=== PATIENT | female | born 1965 | race Caucasian/White ===

== ENCOUNTER → 2020-10-30 09:04 | Outpatient (BNVA) | payer OTHER, SELFPAY | PROVIDERS: PCP Internal Medicine; Visit Provider Nurse Practitioner Family | DX: M54.2 Cervicalgia (principal); M47.816 Spondylosis without myelopathy or radiculopathy, lumbar region | CPT/HCPCS: 99202 ==

== ENCOUNTER → 2020-11-18 16:26 | Outpatient (BNVA) | payer OTHER, SELFPAY | PROVIDERS: PCP Internal Medicine; Visit Provider Nurse Practitioner Family | DX: M54.2 Cervicalgia (principal); M47.816 Spondylosis without myelopathy or radiculopathy, lumbar region | CPT/HCPCS: 99212; Q3014 ==

== ENCOUNTER 2021-04-30 09:00 | Outpatient (RCR) | payer OTHER, SELFPAY | END 2021-06-28 11:22 | disposition home or self-care (01) | LOC: HO.PTWFD 09:00 | PROVIDERS: PCP Internal Medicine; Visit Provider Nurse Practitioner Family | DX: M54.2 Cervicalgia (principal) | CPT/HCPCS: 97012; 97014; 97110; 97140; 97162; 97535 ==

== ENCOUNTER → 2021-05-28 15:49 | Outpatient (BNVA) | payer OTHER, SELFPAY | PROVIDERS: PCP Internal Medicine; Visit Provider Nurse Practitioner Family | DX: M54.2 Cervicalgia (principal); M47.816 Spondylosis without myelopathy or radiculopathy, lumbar region | CPT/HCPCS: 99212 ==

== ENCOUNTER 2021-08-18 06:09 | Outpatient (REF) | payer OTHER, SELFPAY ==
--- NOTE | ~2021-08-18 | FL_ITS ---
EXAMINATION: XR FLUOROSCOPY WITH IMAGES CLINICAL INFORMATION: M54.2 - Cervicalgia COMPARISON: None. TECHNIQUE: Fluoroscopy performed by Dr. Cullen Mckeon. Fluoroscopy time: 0.3 minutes DAP: 0.522 Gycm2 Images: 1 FINDINGS: Single oblique view demonstrate spinal needle overlying the cervical thoracic junction likely interlaminar. There is epidural contrast as well as some contrast extending along lower right nerve sheath. No vascular communication. There are degenerative changes cervical spine suggested. FL/FL guidance in treatment room IMPRESSION: Fluoroscopy for pain management procedure.
== END 2021-08-18 06:10 | disposition home or self-care (01) ==
LOC: HO.RADIR 06:09
PROVIDERS: Visit Provider Internal Medicine
DX: M46.92 Unspecified inflammatory spondylopathy, cervical region (principal); M54.12 Radiculopathy, cervical region; M54.2 Cervicalgia
CPT/HCPCS: 62321; J1040; Q9967

== ENCOUNTER 2021-09-10 09:35 | Outpatient (REF) | payer OTHER, SELFPAY ==
[2021-09-10 12:12] LABS: Alanine Aminotransferase 17 U/L (0-31); Anion Gap 10 (12-20); Aspartate Amino Transferase 17 U/L (5-31); Blood Urea Nitrogen 14 mg/dL (9-16); Calcium 9.4 mg/dL (8.4-10.2); Carbon Dioxide 28 mmol/L (22-29); Chloride 107 mmol/L (96-108); Cholesterol 192 mg/dL; Estimated Glomerular Filt Rate > 60; Glucose Fasting 91 mg/dL (60-99); HDL Cholesterol 87 mg/dL; LDL Cholesterol Calculated 93 mg/dl; Potassium 4.1 mmol/L (3.3-5.1); Sodium 141 mmol/L (135-145); Triglycerides 60 mg/dL
[2021-09-10 12:25] LABS: Vitamin D 25-OH Total 28.2 ng/mL (>30)
== END 2021-09-10 09:36 | disposition home or self-care (01) ==
LOC: HO.HMGCLDS 09:35
PROVIDERS: Visit Provider Internal Medicine
DX: Z00.01 Encounter for general adult medical examination with abnormal findings (principal); E55.9 Vitamin D deficiency, unspecified
CPT/HCPCS: 36415; 80048; 80061; 82306; 84450; 84460

== ENCOUNTER → 2021-09-17 08:41 | Outpatient (BNVA) | payer OTHER, SELFPAY | PROVIDERS: PCP Internal Medicine; Visit Provider Nurse Practitioner Family | DX: Z13.89 Encounter for screening for other disorder (principal) ==

== ENCOUNTER → 2021-10-29 11:41 | Outpatient (BNVA) | payer OTHER, SELFPAY | PROVIDERS: PCP Internal Medicine; Visit Provider Nurse Practitioner Family | DX: M54.2 Cervicalgia (principal) ==

== ENCOUNTER 2021-11-30 11:18 | Outpatient (REF) | payer OTHER, SELFPAY ==
--- NOTE | ~2021-11-30 | US_ITS ---
EXAMINATION: US THYROID CLINICAL INFORMATION: Nontoxic single thyroid nodule. COMPARISON: None. TECHNIQUE: Linear transducer grayscale and color Doppler examination with attention to the region of the thyroid. FINDINGS: SIZE: Measurements of the thyroid lobes and nodules are given in sagittal, anteroposterior and transverse dimensions respectively. Right Thyroid Lobe: 5.4 x 1.4 x 1.4 cm, volume 5.5 mL. Parenchyma: The gland echotexture is homogeneous. Thyroid vascularity is increased. Left Thyroid Lobe: 5.1 x 1.6 x 1.8 cm, volume 7.7 mL. Parenchyma: The gland echotexture is homogeneous. Thyroid vascularity is increased. Isthmus: 0.2 cm in maximum AP dimension. Estimated total number of nodules greater than or equal to 1 cm: 2. Machine Captain nodules are described as follows: 1. Location: Left midpole. Size: 1.7 x 0.8 x 1.1 cm, volume 0.75 mL. Nodule characteristics: Composition: Solid/almost completely solid (2). Echogenicity: Hypoechoic (2). Shape: Not taller than wide (0). Margins: Lobulated (2). Echogenic Foci: None (0). ACR TI-RADS total points: 6. ACR TI-RADS category: 4. 2. Location: Left midpole. Size: 0.7 x 0.5 x 0.8 cm, volume 0.16 mL. Nodule characteristics: Composition: Solid (2). Echogenicity: Isoechoic (1). Shape: Not taller than wide (0). Margins: Smooth (0). Echogenic Foci: None (0). ACR TI-RADS total points: 3. ACR TI-RADS category: 3. 3. Location: Left lower pole medial. Size: 0.5 x 0.3 x 0.5 cm, volume 0.04 mL. Nodule characteristics: Composition: Spongiform (0). Echogenicity: 0 Shape: 0 Margins: 0 Echogenic Foci: 0 ACR TI-RADS total points: 0. ACR TI-RADS category: 1. 4. Location: Right lower pole. Size: 1.0 x 0.6 x 0.8 cm, volume 0.25 mL. Nodule characteristics: Composition: Solid/almost completely solid (2). Echogenicity: Hypoechoic (2). Shape: Not taller than wide (0). Margins: Ill-defined (0). Echogenic Foci: None (0). ACR TI-RADS total points: 4. ACR TI-RADS category: 4. NODES: No lymphadenopathy is seen in the tissue surrounding the thyroid gland. US/US thyroid IMPRESSION: Heterogeneous suspicious vascular nodule right midpole by TI-RADS reference. Recommend fine-needle aspiration. Nonsuspicious other nodules seen. There is mild thyroid enlargement with increased vascularity. ACR TI-RADS RECOMMENDATION REFERENCE: Ultrasound-guided fine-needle aspiration, followup ultrasound, no further follow up. * TR1 (0 point) and TR 2 (2 points): No FNA or follow up * TR3 (3 points): FNA if more than or equal to 2.5 cm in maximum dimension, followup ultrasound in 1, 3 and 5 years if 1.5 to 2.4 cm in maximum dimension. * TR4 (4-6 points): FNA if more than or equal to 1.5 cm in maximum dimension, followup ultrasound in 1, 2, 3 and 5 years if 1 to 1.4 cm in maximum dimension. * TR5 (more than or equal to 7 points): FNA if more than or equal to 1 cm in maximum dimension, followup ultrasound every year for 5 years if 0.5 to 0.9 cm in maximum dimension. * TR3, TR4 or TR5 nodules that are below the size threshold for follow up receive no follow up.
== END 2021-11-30 11:19 | disposition home or self-care (01) ==
LOC: HO.HMGCX 11:18
PROVIDERS: Visit Provider Internal Medicine
DX: E04.1 Nontoxic single thyroid nodule (principal)
CPT/HCPCS: 76536

== ENCOUNTER 2022-02-24 08:23 | Outpatient (REF) | payer OTHER, SELFPAY ==
--- NOTE | 2022-02-24 08:27 | EMG_ITS ---
Right median and ulnar motor and sensory studies were performed. Right radial sensory study was performed and paraspinal muscles were tested with a needle. IMPRESSION: 1. Mild right median neuropathy across carpal tunnel. 2. Mild right ulnar neuropathy across cubital tunnel. 3. No evidence of cervical radiculopathy. MD LUIS EDUARDO Morse/GERALDO / [id number]
== END 2022-02-24 08:24 | disposition home or self-care (01) ==
LOC: HO.NEURO 08:23
PROVIDERS: Visit Provider Nurse Practitioner Family
DX: M46.92 Unspecified inflammatory spondylopathy, cervical region (principal); M54.12 Radiculopathy, cervical region
CPT/HCPCS: 95886; 95910

== ENCOUNTER → 2022-03-04 11:29 | Outpatient (BNVA) | payer OTHER, SELFPAY | PROVIDERS: PCP Internal Medicine; Visit Provider Internal Medicine | DX: E04.2 Nontoxic multinodular goiter (principal) | CPT/HCPCS: 99202 ==

== ENCOUNTER 2022-03-25 15:19 | Outpatient (REF) | payer OTHER, SELFPAY ==
[2022-03-25 17:28] LABS: Free T4 (Free Thyroxine) 0.94 ng/dL (0.71-1.85); Thyroid Stimulating Hormone 1.03 uIU/mL (0.32-4.0)
== END 2022-03-25 15:20 | disposition home or self-care (01) ==
LOC: HO.HMGCLDS 15:19
PROVIDERS: PCP Internal Medicine; Visit Provider Internal Medicine
DX: E04.2 Nontoxic multinodular goiter (principal)
CPT/HCPCS: 36415; 84439; 84443

== ENCOUNTER 2022-06-02 08:40 | Outpatient (REF) | payer OTHER, SELFPAY ==
--- NOTE | 2022-06-02 09:37 | PM.OP ---
Brief Operative Note Date of Service: 06/02/22 Pre-op diagnosis: Multinodular Thyroid Procedure: EXAMINATION: US THYROID CLINICAL INFORMATION: Multinodular Thyroid COMPARISON: Prior TECHNIQUE: Linear transducer rutledge-scale and color Doppler examination with attention to the region of the thyroid. FINDINGS: SIZE: Measurements of the thyroid lobes and nodules are given in sagittal, anteroposterior and transverse dimensions respectively. Right Thyroid Lobe: 1.6 x 4.1 x 1.1 cm, volume 3.7 mL. Parenchyma: The gland echotexture is heterogenous. Thyroid vascularity is mildly increased. Left Thyroid Lobe: 2.0 x 3.5 x 1.1 cm, volume 4.0 mL. Parenchyma: The gland echotexture is mildly heterogenous. Thyroid vascularity is mildly increased. Isthmus: 0.2 cm in maximum AP dimension. RIGHT THYROID LOBE: There is 1 nodule. 1. Right mid pole: There is a 0.7 x 0.8 x 0.4 cm predominantly solid isoechoic nodule with smooth margins, no microcalcifications and peripheral flow. LEFT THYROID LOBE: There are 2 nodules. 1. Left upper mid pole medial: There is a 0.8 x 0.8 x 0.5 cm predominantly solid isoechoic nodule with smooth margins and no microcalcifications. There is peripheral flow. 2. Left upper mid pole lateral: There is a 1.0 cm predominantly solid isoechoic nodule with smooth margins and no microcalcifications. There is peripheral flow. It is unclear if this represents a pseudnodule and solely a blood vessel traversing the gland vs a true nodule. NODES: No lymphadenopathy is seen in the tissue surrounding the thyroid gland. Surgeon: Kelly Lowry, DO Was an Director Of Acquisition Marketing used for this Procedure?: No Estimated blood loss (mL): 0
== END 2022-06-02 08:41 | disposition home or self-care (01) ==
LOC: HO.US 08:40
PROVIDERS: Visit Provider Internal Medicine
DX: E04.2 Nontoxic multinodular goiter (principal)
CPT/HCPCS: 76536

== ENCOUNTER → 2022-07-08 14:35 | Outpatient (BNVA) | payer OTHER, SELFPAY | PROVIDERS: PCP Internal Medicine; Visit Provider Nurse Practitioner Family | DX: Z13.89 Encounter for screening for other disorder (principal) ==

== ENCOUNTER → 2022-08-17 10:31 | Outpatient (BNVA) | payer OTHER, SELFPAY | PROVIDERS: PCP Internal Medicine; Visit Provider Orthopaedic Surgery | DX: G56.01 Carpal tunnel syndrome, right upper limb (principal); G56.21 Lesion of ulnar nerve, right upper limb; M77.11 Lateral epicondylitis, right elbow; M77.12 Lateral epicondylitis, left elbow; R20.0 Anesthesia of skin | CPT/HCPCS: 99202 ==

== ENCOUNTER 2022-10-13 12:02 | Outpatient (REF) | payer OTHER, SELFPAY ==
--- NOTE | 2022-10-13 08:30 | EMG_ITS ---
Left median and ulnar motor and sensory studies were performed. Left radial sensory study was performed and paraspinal muscles were tested with a needle. IMPRESSION: Mild to moderate left median neuropathy across carpal tunnel. MD LUIS EDUARDO Morse/GERALDO / [id number]
== END 2022-10-13 12:03 | disposition home or self-care (01) ==
LOC: HO.NEURO 12:02
PROVIDERS: PCP Internal Medicine; Visit Provider Orthopaedic Surgery
DX: R20.0 Anesthesia of skin (principal); R20.2 Paresthesia of skin
CPT/HCPCS: 95886; 95910

== ENCOUNTER 2023-01-06 14:21 | Outpatient (AMB) | payer OTHER, SELFPAY ==
--- NOTE | 2023-01-06 14:27 | A.OFFVIS_ITS ---
Intake Vital Signs 01/06/23 14:33 Height 5 ft 10.5 in Weight 157 lb 4 oz BMI 22.2 BP 129/62 Blood Pressure Location Rt brachial Position Sitting Pulse 74 Pulse Source Pulse Oximeter Pulse Oximetry (%) 100 Oxygen Delivery Method Room Air Intake Visit Reasons: emg results Intake Note: Pain today 07/22. 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 Patient continues to report bilateral elbow, hand and wrist discomfort with use, movements, lifting or pulling objects. Reports intermittent weakness and numbness, especially left hand with certain activities. She is right hand dominant and works at [employer]. Patient was referred to Dr. Armas back in June and was deemed non surgical at that time. She was referred to OT and left EMG but had no follow up with Dr. Armas. We reviewed her EMG results today noted for mild to moderate left median neuropathy across carpal tunnel. She continues brace mainly at night, NSAIDs, and gabapentin with continued symptoms. Reports neck pain with looking down during dental work and relieved with rest, home exercise program, stretching and good posture. Denies any fever, chest pain, shortness of breaths, dizziness, gait imbalances, bladder or bowel incontinence or saddle anesthesia. PRIOR: Patient is a pleasant 56 years old female presents today via telehealth encounter for follow up and EMG study review. Patient was last seen in our office on 10/29/21 by Enriqueta REINA. She continues to report axial and radicular cervical pain. Pain increases with side to side movements, hyperextension and with heavy lifting or carrying heavy objects which causes pull sensation on her neck. She reports radiation of pain to her occipital regions and into left shoulder to left wrist. Patient notes that she has left RTC tendinitis, left tennis elbow and left wrist ganglion cyst. 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 Denies headaches or significant muscle spasms or stiffness. Her EMG study showed right median neuropathy across carpal tunnel and mild right ulnar neuropathy across cubital tunnel. No evidence of cervical radiculopathy. Patient reports physical therapy and one session of acupuncture provided temporary but good results. She also uses cervical pillow for sleep. Patient continues home exercise program to cervical ROM, trying best to maintain good posture which she finds difficult during her work hours as she is tall and has long neck with constant looking down posture. Patient would like to pursue Hand Surgeon evaluation at this time. She is not interested in undergoing cervical therapeutic or diagnostic injections at this time. PRIOR: Abigail is a pleasant 55 year old female who presents to the office with complaints of neck pain and more recently low back pain. She states the pain started over ten years ago without any inciting events, but in the past few months has been more exacerbated. She reports her neck pain starts in the middle and radiates to the right shoulder and down to her wrist with occasional numbness and tingling. Denies any weakness. Previously this was present on the LUE. She also reports her low back has been causing more discomfort since April 2020. Her back pain radiates across the low back without radiation, numbness, tingling or weakness. She also has a history of arthritis of the left shoulder as well as lateral epicondylitis and ganglion cyst for which she uses braces for. The pain is worse in the morning and less severe mid morning. She reports pain onset was gradual for her neck and sudden for her back. Her pain is constant and rates it a 9/10. She states the pain is interfering with sleep, activities of daily living and she cannot function normally. The patient reports the neck pain in terms of tissue damage as burning, scalding, tinging as well as stinging and her low back pain as sharp. She has been taking Ibuprofen 800 mg QD along with gabapentin 300 mg QHS with moderate effect. She has also tried topicals and has the best effect with bengay. She has tried different mattress toppers and pillows with no improvement in her symptoms. Previously she has tried physical therapy for the neck, as well as chiropractic manipulation with good effect. She continues to perform HEP. She has also used TENS unit with some effect. Denies any previous spinal surgery. She last had imaging of through [facility] pain management. This imaging/report is not available today. She presents today to discuss repeat injections, as she had received two in the past with significant improvement in her pain through [facility]PM. 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 Alert and oriented. Mood and affect appropriate. Follows and participates in conversation appropriately. Respiratory effort is unlabored. Able to transition from sit to stand unassisted. Ambulates with bilaterally normal heel strike and toe off. Neck Other: Patient demonstrated 5/5 motor strength of bilateral upper extremities, no triceps weakness. No wrist extension weakness bilaterally. Reports numbness and paresthesias with hand and wrist overuse, left>right. 2 + radial pulses. Pain with bilateral wrist flexion. Localized tenderness of left wrist lump ? ganglion cyst. Neck: Yes full ROM, Yes no lymphadenopathy, Yes supple, No anterior neck swelling and Yes no JVD Back/Spine/Pelvis Cervical Spine: cervical ROM normal, cervical muscular tenderness, pain with cervical ROM and No Cervical spine tenderness Thoracic/Lumbar Spine: thoracic and lumbar spine normal to inspection, thoraco- lumbar ROM normal, No thoracic spinal tenderness and No lumbar spinal tenderness Extrem General: Yes capillary refill normal and Yes no clubbing, cyanosis or edema Right upper extremity: full ROM, normal capillary refill and no joint enlargement; no cyanosis Left upper extremity: normal capillary refill and no joint enlargement; no cyanosis Results Reviewed Results Reviewed: NE electromyogram (EMG); NE nerve conduction velocity 10/13/22 Left median and ulnar motor and sensory studies were performed. Left radial sensory study was performed and paraspinal muscles were tested with a needle. IMPRESSION: Mild to moderate left median neuropathy across carpal tunnel. NE electromyogram (EMG); NE nerve conduction velocity 02/24/22 Right median and ulnar motor and sensory studies were performed. Right radial sensory study was performed and paraspinal muscles were tested with a needle. IMPRESSION: 1. Mild right median neuropathy across carpal tunnel. 2. Mild right ulnar neuropathy across cubital tunnel. 3. No evidence of cervical radiculopathy. Assessment & Plan Assessment & Plan (1) Carpal tunnel syndrome: Code(s): G56.00 - Carpal tunnel syndrome, unspecified upper limb (2) Tennis elbow syndrome: Code(s): M77.10 - Lateral epicondylitis, unspecified elbow Plan EMG results for left upper extremity reviewed and are noted above. Script sent for gabapentin refill. Patient will follow up with Dr. Armas for ongoing bilateral hand and wrist pain consistent with carpal tunnel syndrome. Continue home exercise therapy, neck stretching, good posture, NSAIDs, bracing and monitor for any worsening of symptoms. All questions were answered and patient agreed with the plan. Follow up as needed. Orders: Referrals Hand Surgery Referral G56.00 - Carpal tunnel syndrome, unspecified upper limb, M77.10 - Lateral epicondylitis, unspecified elbow Medications: Changed From gabapentin 300 mg PO BEDTIME 30 caps 0RF G56.00 - Carpal tunnel syndrome, unspecified upper limb, M77.10 - Lateral epicondylitis, unspecified elbow To gabapentin 300 mg PO BEDTIME 30 days 90 caps 6RF pain G56.00 - Carpal tunnel syndrome, unspecified upper limb, M77.10 - Lateral epicondylitis, unspecified elbow Coding Level of Care Code Est Pt Level 4 (22793) Diagnoses Carpal tunnel syndrome G56.00 Tennis elbow syndrome M77.10
[2023-01-06 14:33] VITALS: BP 129/62; PULSE 74; O2SAT 100; BMI 22.2
== END 2023-01-06 15:04 | disposition home or self-care (01) ==
PROVIDERS: PCP Internal Medicine; Visit Provider Nurse Practitioner Family
DX: G56.00 Carpal tunnel syndrome, unspecified upper limb (principal); M77.10 Lateral epicondylitis, unspecified elbow
CPT/HCPCS: 99214

== ENCOUNTER → 2023-01-06 14:21 | Outpatient (BNVA) | payer OTHER, SELFPAY | PROVIDERS: PCP Internal Medicine; Visit Provider Nurse Practitioner Family | DX: G56.01 Carpal tunnel syndrome, right upper limb (principal); M77.11 Lateral epicondylitis, right elbow | CPT/HCPCS: 99212 ==

== ENCOUNTER 2023-02-01 11:04 | Outpatient (AMB) | payer OTHER, SELFPAY ==
--- NOTE | 2023-02-01 11:15 | MHC.OFFVIS ---
Intake Vital Signs 02/01/23 11:18 Height 5 ft 10.5 in Weight 157 lb BMI 22.2 Intake Visit Reasons: OV-CTS B/L upper limb/EMG rev Intake Note: Sarah Lucas 57 yr old right hand dominant female presents today for her EMG review of her left hand. She complains of numbness and tingling intermittent but daily that wakes her up at night worst in the left hand. Patient states she never received a call to start OT and would like to discuss treatment vs surgical. 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 She has known right carpal & cubital tunnel syndrome, mild. She is being seen by Pain Management primarily for neck pain, LBP, and cervical radiculopathy. She has bilateral lateral epicondylitis, and at her last appointment OT was ordered, but the patient says she never received a call from OT and has not done any therapy. ? ? She continues to have numbness in the median nerve distribution of her left hand, which is more bothersome than her right side. She reports some numbness in all digits of her right hand. Her symptoms are intermittent and worse with activity, she is unsure how frequently she gets numbness otherwise.? She continues to have pain in the lateral aspect of her forearms, which is aggravated by her duties at work. Again she has not been contacted by OT for her lateral epicondylitis at this time. I reassured her that the bump on the dorsal aspect of her left hand is a metacarpal boss, and not a ganglion [facility] Medical History Anxiety and depression Mild intermittent asthma Multinodular thyroid Tendinitis of left shoulder Tennis elbow syndrome Thyroid nodule greater than or equal to 1 cm in diameter incidentally noted on imaging study Surgical History Hx of colonoscopy Family History Mother Mental health disorder Social History Housing: House Patient Tobacco Use Status: Current everyday Tobacco user Cigarettes Per Day: 5 e-Cigarette/Vaping Use: Never Used service: No Current occupational status: employed 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 Review of Systems Const All systems reviewed & are unremarkable except as noted in HPI and below Physical Exam Vital Signs: BMI result Body Mass Index 22.2 Const General: cooperative, healthy appearing and no acute distress Orientation/consciousness: patient oriented x3 HEENT Head: Yes normocephalic and Yes atraumatic Eyes EOM: EOMs intact bilaterally Resp Effort & Inspection: normal respiratory effort and able to speak in complete sentences Cardio Jugular venous distension: no JVD Skin General skin exam: turgor normal Rashes: no rashes Neuro General: patient oriented x3 Extrem Other: Evaluation of Bilateral Upper Extremity: The patient is alert, oriented, and in no acute distress Neuro: Median, Ulnar, Radial nerves motor and sensory intact and sensation is normal to the tips of all digits today in clinic No thenar or intrinsic wasting Good APB muscle belly firing and good finger cross Vascular: Cap refill brisk ROM: She can make a fist and extend all her digits Full active ROM of bilateral wrists without pain She demonstrated that if she holds her hand in a certain way she would feel some longitudinally oriented muscle tightness in the dorsal aspect of her forearms bilaterally She was not particularly tender overt the extensor origins bilaterally today I again did not appreciate any ganglion today, but she does appear to have a metacarpal boss at the base of the 2/3 metacarpals. No evidence of snapping tendons with full active range of motion of the fingers and wrist. Nerve Conduction study: IMPRESSION:? Mild to moderate left median neuropathy across carpal tunnel. Alec Sanchez MD 10/13/2022 Nerve Conduction study: Performed on the right side only IMPRESSION: 1. Mild right median neuropathy across carpal tunnel. 2. Mild right ulnar neuropathy across cubital tunnel. 3. No evidence of cervical radiculopathy. Alec Sanchez MD 02/24/2022 Psych Appearance: grossly normal Affect: normal affect Attitude: cooperative Assessment & Plan Assessment & Plan (1) Carpal tunnel syndrome of right wrist: Code(s): G56.01 - Carpal tunnel syndrome, right upper limb (2) Cubital tunnel syndrome on right: Code(s): G56.21 - Lesion of ulnar nerve, right upper limb (3) Left lateral epicondylitis: Code(s): M77.12 - Lateral epicondylitis, left elbow (4) Right lateral epicondylitis: Code(s): M77.11 - Lateral epicondylitis, right elbow (5) Carpal tunnel syndrome of left wrist: Code(s): G56.02 - Carpal tunnel syndrome, left upper limb Plan Assessment & Plan: 1. Left carpal tunnel syndrome, mild-moderate Intermittent, but daily I educated her about this condition I discussed operative and non-operative treatment options The patient would like to proceed with surgery The risks and benefits of operative treatment were discussed with the patient and the patient wishes to proceed with surgery. These risks include, but are not limited to risk of damage to blood vessels, nerves, tendons, infection, recurrence, incomplete relief of preoperative symptoms, persistent pain, possible need for further surgery and the risks associated with regional blocks and anesthesia. The plan is to take the patient to the operating room sometime in the next few weeks for the following procedures: 1. Left carpal tunnel release, under local All of the preoperative paperwork including the consent was filled out today. All the patient's questions were answered. The patient understands that they will be contacted by our apparel manufacture instructor soon to schedule this procedure. She would like to have this done on a if possible She denies Diabetes, blood thinners, asthma, heart, lung, kidney issues 2. Bilateral lateral epicondylitis Improved but aggravated by certain activities She manages this with an elbow brace She was referred to OT hand therapy at her last appointment on 08/17/22 to work on exercises for stretching and prevention and how to perform her work duties without causing her pain She has not been contacted by OT at this time I again ordered OT hand therapy for her 3. Right Carpal tunnel syndrome, mild Symptoms intermittent worse with activity 4. Right Cubital tunnel syndrome, mild Symptoms intermittent worse with activity She does believe that she gets some numbness in her small finger. She will continue to be mindful to determine whether she gets numbness and tingling in the small finger or not. This is not as bothersome as her left hand She can follow up to discuss treatment when recovered from her left side surgery Scribed for Amber Armas MD by Miguel Ley, chief medical technologist, on 02/01/23 at 11:50 AM, EST. Orders: Orders OT Evaluation and Treatment Today G56.02 - Carpal tunnel syndrome, left upper limb, M77.11 - Lateral epicondylitis, right elbow, M77.12 - Lateral epicondylitis, left elbow Coding Level of Care Code Est Pt Level 4 (36025) Diagnoses Carpal tunnel syndrome of right wrist G56.01 Cubital tunnel syndrome on right G56.21 Left lateral epicondylitis M77.12 Right lateral epicondylitis M77.11 Carpal tunnel syndrome of left wrist G56.02
[2023-02-01 11:18] VITALS: BMI 22.2
== END 2023-02-01 12:21 | disposition home or self-care (01) ==
PROVIDERS: PCP Internal Medicine; Visit Provider Orthopaedic Surgery
DX: G56.01 Carpal tunnel syndrome, right upper limb (principal); G56.21 Lesion of ulnar nerve, right upper limb; M77.12 Lateral epicondylitis, left elbow; M77.11 Lateral epicondylitis, right elbow; G56.02 Carpal tunnel syndrome, left upper limb
CPT/HCPCS: 99214

== ENCOUNTER → 2023-02-01 11:04 | Outpatient (BNVA) | payer OTHER, SELFPAY | PROVIDERS: PCP Internal Medicine; Visit Provider Orthopaedic Surgery | DX: G56.03 Carpal tunnel syndrome, bilateral upper limbs (principal); G56.21 Lesion of ulnar nerve, right upper limb; M77.11 Lateral epicondylitis, right elbow; M77.12 Lateral epicondylitis, left elbow | CPT/HCPCS: 99212 ==

== ENCOUNTER 2023-02-03 12:07 | Outpatient (AMB) | payer OTHER, SELFPAY ==
[2023-02-03 12:10] VITALS: BP 130/70; PULSE 68; O2SAT 97; BMI 22.3
--- NOTE | 2023-02-03 12:10 | MHC.PC.OV ---
Vital Signs 02/03/23 12:10 Height 5 ft 10.5 in Weight 158 lb BMI 22.3 BP 130/70 Blood Pressure Location Lt brachial Position Sitting Pulse 68 Pulse Source Pulse Oximeter Pulse Oximetry (%) 97 Intake Visit Reasons: Annual PE/anxiety, medications Intake Note: pt is here for annual exam, f/u on anxiety and medication refill Allergies aspirin Allergy (Unknown, Verified 02/03/23 12:36) shortness of breath /wheezing Medication List - Last Reconciled 02/03/23 by Anna Bryant MD albuterol sulfate 90 mcg/actuation 1 puff inhalation QID PRN budesonide 180 mcg/actuation (Pulmicort Flexhaler) 1 inh inhalation BID clonazepam 1 mg PO DAILY PRN duloxetine 30 mg PO DAILY 90 days estradiol 0.01%(0.1mg/gram) 1 g vaginal 2XW fluticasone propion-salmeterol 113-14 mcg/actuation 1 inh inhalation Q12H gabapentin 300 mg PO BEDTIME 30 days ibuprofen 800 mg PO ONCE multivitamin 1 tab PO DAILY Tobacco use date assessed: 02/03/23 Dental Screening Dental Screen Date: 02/03/23 Did you have a dental visit in the last 12 months?: Yes Did you have a dental problem in the last 6 months where you did not have access to dental care?: No Was dental information given to patient?: Patient has dentist HPI Annual PE/anxiety, medications HPI Details 57-year-old lady here today for physical exam, she goes to her own OBGYN for routine Pap and pelvic exam. Currently up-to-date with her screening colonoscopy. She is currently seen at endocrine clinic in [place] for her thyroid disorder. Takes duloxetine and lorazepam as needed for her depression and anxiety. Continues to smoke cigarettes with no desire to quit at present time. Is up-to-date for COVID vaccine, and Tdap, has not yet had her shingles vaccine. 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 1. Little interest or pleasure in doing things: not at all 2. Feeling down, depressed, or hopeless: not at all 3. Trouble falling or staying asleep, or sleeping too much: several days 4. Feeling tired or having little energy: several days 5. Poor appetite or overeating: not at all 6. Feeling bad about yourself - or that you are a failure or have let yourself or your family down: not at all 7. Trouble concentrating on things, such as reading the newspaper or watching television: several days 8. Moving or speaking so slowly that other people could have noticed. Or the opposite - being so fidgety or restless that you have been moving around a lot more than usual: not at all 9. Thoughts that you would be better off or of hurting yourself in some way: not at all Total score: 3 Depression Screening Interpretation: Negative 18200 - PHQ-9 Billing: Yes Source: Developed by Drs. Faheem Harrell, Sumi Hernandez, Cameron Butler and colleagues, with an educational nahid from [employer]. Thrive Questionnaire Date Thrive assessed: 02/03/23 I am a: Patient What is your living situation today?: I have a steady place to live Within the past 12 months, did the food you bought not last and you didn't have the money to get more?: Never true Within the past 12 months, did you worry whether your food would run out before you got money to buy more?: Never true Do you have trouble paying for medicines?: No Do you have trouble getting transportation to medical appointments?: No Do you have trouble paying your heating and electricity bill?: No Do you have trouble taking care of your child, family member or friend?: No Do you have trouble with day-to-day activities such as bathing, preparing meals, shopping, managing finances, etc.?: No Are you currently unemployed and looking for a job?: No Are you interested in more education?: No AUDIT C Alcohol Use Questionnaire (AUDIT-C) 1. How often do you have a drink containing alcohol?: Never Total Score: 0 THOMAS-7 AMB Questionnaire THOMAS-7 Date THOMAS - 7 assessed: 09/03/21 Feeling nervous, anxious, or on edge: 0 = Not at all Not being able to stop or control worryin = Several days Worrying too much about different things: 1 = Several days Trouble relaxin = Not at all Being so restless that it is hard to sit still: 0 = Not at all Becoming easily annoyed or irritable: 0 = Not at all Feeling afraid as if something awful might happen: 0 = Not at all Total THOMAS-7 score (0-4 normal; 5-9 mild; 10-14 moderate; 15-21 severe): 2 Source: Developed by Drs. Faheem Harrell, Sumi Hernandez, Cameron Butler and colleagues, with an educational nahid from [employer]. THOMAS-7 Assessment Billing THOMAS-7 Assessment Tool: THOMAS-7 Assessment 22340 Review of Systems Const Denies body aches, Denies fatigue, Denies fever(s), Denies headache(s) and Denies weakness Eyes Denies change in vision ENT Denies dizziness, Denies headache(s), Denies nasal congestion, Denies nasal discharge and Denies sore throat Card Denies chest pain, Denies lightheadedness, Denies palpitations and Denies dyspnea Resp Denies chest congestion, Denies cough, Denies dyspnea and Denies wheezing GI Denies abdominal pain, Denies change in bowel habits and Denies heartburn Denies urinary frequency, Denies dysuria and Denies urinary urgency Musc Reports no additional complaints and Reports stiffness (Neck stiffness) Skin/Breast Denies breast pain, Denies breast mass, Denies changing lesions, Denies dry skin and Denies rash Neuro Denies dizziness, Denies headache(s) and Denies weakness Psych Reports as per HPI Endo Denies fatigue, Denies polydipsia, Denies polyuria and Denies palpitations Arnoldo/Lymph Denies easy bruising Aller/Immun Denies seasonal rhinorrhea and Denies wheezing Physical exam (Primary Care) Vital Signs: Last Vital Signs Pulse 68 02/03/23 12:10 BP 130/70 02/03/23 12:10 Pulse Ox 97 02/03/23 12:10 BMI result Body Mass Index 22.3 Tobacco/Smoking Status: Tobacco use Status Tobacco use date assessed 02/03/23 02/03/23 12:11 Patient Tobacco Use Status Current everyday Tobacco 02/03/23 12:11 e-Cigarette/Vaping Use Never Used 02/03/23 12:11 PHQ-9: PHQ-9 Score PHQ-9: Total score 3 02/05/23 23:06 Depression Screening Interpretation: Negative Thrive Assessment: Date of Thrive Assessment Date Thrive assessed 02/03/23 02/05/23 23:02 Const General: comfortable, no acute distress and alert Nutritional Appearance: average body habitus Orientation/consciousness: patient oriented x3 Limitations: no limitations HENMT Head: Yes normocephalic Ears: hearing grossly normal bilaterally, external ears normal, TM's normal bilaterally and EAC's normal Face and sinus: Yes face symmetric Mouth: Normal oral and palatal mucosa present and moist mucous membranes Throat: Yes posterior oropharynx normal Eyes General: appearance normal, both eyes and all related structures Neck Neck: Yes full ROM, Yes no lymphadenopathy and Yes supple Thyroid: Thyroid normal Chest Chest palpation & inspection: normal inspection of the chest Breast/axilla palpation: normal palpation of the breasts and normal palpation of the axillae Resp Effort & Inspection: normal respiratory effort and able to speak in complete sentences Auscultation: clear to auscultation bilaterally Cardio Palpation: normal PMI Rate: regular rate Rhythm: regular rhythm Heart sounds: S1 normal heart sound present and S2 normal heart sound present GI Inspection: Yes normal to inspection Palpation (GI): Soft to palpation, nontender, no guarding and no masses Auscultation: normal bowel sounds General: Yes no CVA tenderness and Yes deferred Back/Spine/Pelvis Back: no CVA tenderness and No back tenderness Skin General skin exam: no rashes or lesions noted Neuro General: patient oriented x3, gait normal, tone normal, moves all extremities, no focal motor deficits and CN's II-XI intact bilaterally Gait exam (Neuro): Normal gait present Motor exam (neuro): 5/5 motor strength present throughout Extrem General: Yes full ROM, Yes no joint enlargement, Yes no clubbing, cyanosis or edema, Yes no pedal edema, Yes no calf tenderness and Yes normal gait Psych Appearance: grossly normal and well kempt Mental Status: mental status grossly normal Speech and movement: Normal speech and movement present Affect: normal affect Attitude: cooperative Thought process: Normal thought process present Thought content: Normal thought content present Assessment and Plan Assessment & Plan (1) Annual visit for general adult medical examination with abnormal findings: Code(s): Z00.01 - Encounter for general adult medical examination with abnormal findings Plan: Will check appropriate labs. Continue regular dental visit every 6 months and regular eye exams, at least every 2 years. Take adequate calcium in diet and vitamin-D 3 at 2000 IU per cap once a day, in addition to weight-bearing exercises to help maintain good muscle tone and weight control. Instructed to do self-breast exam, and is up-to-date with her yearly mammogram,. Last colonoscopy was done 10/03/[address] Castellanos, with normal findings, to be repeated in 10 years.? ? She takes duloxetine for treatment for anxiety depression which has been helping. ? ? [facility] (2) Anxiety and depression: Code(s): F41.9 - Anxiety disorder, unspecified; F32.A - Depression, unspecified Plan: Stable controlled on duloxetine 30 mg daily, and takes clonazepam 1 mg once a day as needed for acute anxiety attacks. (3) Mild intermittent asthma: Code(s): J45.20 - Mild intermittent asthma, uncomplicated Plan: Asthma symptoms stable controlled on present treatment, will continue on fluticasone-salmeterol inhaler 1 inhalation every 12 hours and albuterol and haler as needed for episodes of bronchospasm with his (4) Cervical spondylitis with radiculitis: Code(s): M46.92 - Unspecified inflammatory spondylopathy, cervical region; M54.12 - Radiculopathy, cervical region Plan: Takes gabapentin 300 mg at bedtime, which helps alleviate some of her symptoms Orders: Orders Alanine Aminotransferase 02/03/23 Z00.01 - Encounter for general adult medical examination with abnormal findings Aspartate Amino Transferase 02/03/23 Z00.01 - Encounter for general adult medical examination with abnormal findings Basic Metabolic Panel Fasting 02/03/23 Z00. - Encounter for general adult medical examination with abnormal findings Lipid Panel 02/03/23 Z00. - Encounter for general adult medical examination with abnormal findings Vitamin D 25-OH Total 02/03/23 Z00. - Encounter for general adult medical examination with abnormal findings Coding Level of Care Code Est Pt Prev Care 40-64y(39695) Diagnoses Annual visit for general adult medical examination with abnormal findings Z00.01 Anxiety and depression F41.9; F32.A Mild intermittent asthma J45.20 Cervical spondylitis with radiculitis M46.92; M54.12 Additional Codes THOMAS-7 Assessment Billing - THOMAS-7 Assessment Tool: THOMAS-7 Assessment 93580 ([id number])
== END 2023-02-03 13:12 | disposition home or self-care (01) ==
PROVIDERS: PCP Internal Medicine; Visit Provider Internal Medicine
DX: Z00.01 Encounter for general adult medical examination with abnormal findings (principal); F41.9 Anxiety disorder, unspecified; J45.20 Mild intermittent asthma, uncomplicated; M46.92 Unspecified inflammatory spondylopathy, cervical region; F32.A Depression, unspecified; M54.12 Radiculopathy, cervical region
CPT/HCPCS: 99396

== ENCOUNTER 2023-03-09 11:21 | Day surgery (SDC) | payer OTHER, SELFPAY ==
[2023-03-09 11:40] VITALS: BP 143/82; PULSE 78; RESP 18; TEMP 36.2; O2SAT 98
[2023-03-09 12:33] VITALS: BMI 21.2
--- NOTE | 2023-03-09 14:04 | MHC.SHP ---
Pre-Procedural Eval Section A Date of Service: 03/09/23 The patient is an INPATIENT: No Changes since office visit: No Cold of Flu in the past 2 weeks, No New Medical Problems, No Changes in Medication and No Patient answered all questions The History & Physical has been completed within 30 days and I have reviewed it.: Yes Section B Chief Complaint: Carpal tunnel syndrome, left upper limb Allergies: Allergies Allergy/AdvReac Type Severity Reaction Status Date / Time aspirin Allergy Unknown shortness Verified 02/03/23 12:36 of breath /wheezing Plan I have reviewed the history and physical and performed a pertinent physical examination on my patient. No changes have occurred unless specified. Time Spent With Patient Time: Total time managing care of this patient today ____ minutes.
--- NOTE | 2023-03-09 14:04 | W.PM.OPN ---
Operative Note Operative Note Date of Service: 03/09/23 Narrative: Preop diagnosis: 1. Left Carpal tunnel syndrome Postop diagnosis: same Procedure: 1. left Carpal tunnel release Surgeon: Amber Armas MD Anesthesia: local block using 1% lidocaine with epinephrine Findings: Thickened transverse carpal ligament. EBL: Less than 5 mL Specimens: None Complications: None Disposition: Brought to recovery room in stable condition Plan: Follow-up for 10-14 days for wound check and suture removal Indications: The patient is 57 years old, with left carpal tunnel syndrome that has been unresponsive to nonoperative management. The risks and benefits of operative treatment including but not limited to risk of damage to blood vessels, nerves, tendons, infection, persistent pain, persistent symptoms, or possible need for additional surgery were discussed with the patient and the patient wishes to proceed with surgery. Procedure: Once consent was obtained a local block was performed using a combination of 1% lidocaine with epinephrine. The patient was then brought back to the operating suite and placed on the operative table in supine position. The left upper extremity was prepped and draped in a standard surgical fashion. Once assured that we had a good block, a 2.0 cm longitudinal incision was made centered over the carpal tunnel. The incision was made through the skin to the subcutaneous tissues using a #15 blade. Dissection was made down to the level of the transverse carpal ligament with care being taken to protect the palmar cutaneous nerve. Once the transverse carpal ligament was clearly visualized, a longitudinal incision was made in the transverse carpal ligament 1st using a #15 blade, then using tenotomy scissors under direct visualization. Care was taken to look for and protect the motor branch of the median nerve when seen in this area. Once satisfied with our carpal tunnel release the wound was copiously irrigated with normal saline and hemostasis was obtained with a brief period of local pressure. The skin edges were reapproximated with some 5.0 nylon suture material and a sterile dressing was applied. The patient appears to have tolerated the procedure well and with no complications. All digits were well vascularized at the conclusion of the case.
[2023-03-09 14:07] VITALS: BP 125/82; PULSE 71; RESP 20; O2SAT 100
== END 2023-03-09 14:09 | disposition home or self-care (01) ==
PROVIDERS: PCP Internal Medicine; Visit Provider Orthopaedic Surgery
PROC: (CPT 64721; principal; 2023-03-09 12:30)
DX: G56.02 Carpal tunnel syndrome, left upper limb (principal); R20.0 Anesthesia of skin; R20.2 Paresthesia of skin; M77.12 Lateral epicondylitis, left elbow; J45.20 Mild intermittent asthma, uncomplicated; F41.8 Other specified anxiety disorders; F17.210 Nicotine dependence, cigarettes, uncomplicated; Z88.8 Allergy status to other drugs, medicaments and biological substances
CPT/HCPCS: 64721; J0171

== ENCOUNTER → 2023-03-09 11:21 | Outpatient (BNV) | payer OTHER, SELFPAY | PROVIDERS: PCP Internal Medicine; Visit Provider Orthopaedic Surgery | DX: G56.02 Carpal tunnel syndrome, left upper limb (principal) | CPT/HCPCS: 64721 ==

== ENCOUNTER 2023-03-21 12:52 | Outpatient (AMB) | payer OTHER, SELFPAY ==
--- NOTE | 2023-03-21 12:55 | MHC.OFFVIS ---
Intake Vital Signs 03/21/23 13:05 Height 5 ft 10 in Weight 150 lb BMI 21.5 Handedness Right Intake Visit Reasons: PO LT CTR 03/09/23AR Intake Note: Abigail is a 57 year old right hand dominant female who presents today for a post op appointment s/p left CTR 03/09/23 AR. Patient reports her symptoms has improved. No numbness or tingling. Sutures were removed and steri strips were applied. 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 She has known right carpal & cubital tunnel syndrome, mild. She is being seen by Pain Management primarily for neck pain, LBP, and cervical radiculopathy. She has bilateral lateral epicondylitis. She says her sensation is improved and now normal in her left hand. She no longer has any numbness and had good resolution of her nighttime symptoms. She reports some numbness in all digits of her right hand. Her symptoms are intermittent and worse with activity, she is unsure how frequently she gets numbness otherwise.? She complains of pain in the dorsal aspect of her left wrist, in the area of her prominent metacarpal boss [facility] Medical History Anxiety and depression Mild intermittent asthma Multinodular thyroid Tendinitis of left shoulder Tennis elbow syndrome Thyroid nodule greater than or equal to 1 cm in diameter incidentally noted on imaging study Surgical History Hx of colonoscopy Family History Mother Mental health disorder Social History Housing: House Patient Tobacco Use Status: Current everyday Tobacco user Cigarettes Per Day: 5 e-Cigarette/Vaping Use: Never Used service: No Current occupational status: employed 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 Cognitive needs: No Hearing needs: No Vision needs: No Review of Systems Const All systems reviewed & are unremarkable except as noted in HPI and below Physical Exam Vital Signs: BMI result Body Mass Index 21.5 Const General: cooperative, healthy appearing and no acute distress Orientation/consciousness: patient oriented x3 HEENT Head: Yes normocephalic and Yes atraumatic Eyes EOM: EOMs intact bilaterally Resp Effort & Inspection: normal respiratory effort and able to speak in complete sentences Cardio Jugular venous distension: no JVD Skin General skin exam: turgor normal Rashes: no rashes Neuro General: patient oriented x3 Extrem Other: The patient was alert oriented and in no acute distress The incision is healing well with no erythema drainage or evidence of infection. Sutures removed and Steri-Strips applied She can make a fist and extend all her digits Sensation is normal to the tips of all digits of her left hand I again did not appreciate any ganglion today, but she does appear to have a metacarpal boss at the base of the 2nd/3rd CMC joints. No evidence of snapping tendons with full active range of motion of the fingers and wrist. Cap refill is brisk Nerve Conduction study: IMPRESSION:? Mild to moderate left median neuropathy across carpal tunnel. Alec Sanchez MD 10/13/2022 Nerve Conduction study: Performed on the right side only IMPRESSION: 1. Mild right median neuropathy across carpal tunnel. 2. Mild right ulnar neuropathy across cubital tunnel. 3. No evidence of cervical radiculopathy. Alec Sanchez MD 02/24/2022 Psych Appearance: grossly normal Affect: normal affect Attitude: cooperative Assessment & Plan Assessment & Plan (1) Carpal tunnel syndrome of right wrist: Code(s): G56.01 - Carpal tunnel syndrome, right upper limb (2) Cubital tunnel syndrome on right: Code(s): G56.21 - Lesion of ulnar nerve, right upper limb (3) Left lateral epicondylitis: Code(s): M77.12 - Lateral epicondylitis, left elbow (4) Right lateral epicondylitis: Code(s): M77.11 - Lateral epicondylitis, right elbow (5) Carpal tunnel syndrome of left wrist: Code(s): G56.02 - Carpal tunnel syndrome, left upper limb Plan Assessment & Plan: 1. Left carpal tunnel syndrome, S/P release DOS: 03/09/23 Pre-operative symptoms intermittent, but daily Now with normal sensation The patient appears to be doing well post-operatively I educated her about the post-operative course I explained the signs and symptoms of infection, if the patient develops any new or worsening erythema, drainage, pain, or warmth they should contact the clinic or attend the ED. I discussed activity modifications, she is to lift nothing heavier than a cellphone for the next two weeks She will perform gentle ROM exercises at home She should avoid any underwater activities for the next 5 days She should gently massage about the incision site to reduce the risk of hypersensitivity She will continue to work light duty for the next two weeks, and return to full duty on 04/06/23 2. Left 2nd/3rd metacarpal boss Pain when struck and a generalized ache Occasionally symptomatic If this continues to bother her she may make an appointment to discuss this, with radiographs 3. Right Carpal tunnel syndrome, mild Symptoms intermittent worse with activity 4. Right Cubital tunnel syndrome, mild Symptoms intermittent worse with activity She will continue to be mindful to determine whether she gets numbness and tingling in the small finger or not. This is not as bothersome as her left hand She can follow up to discuss treatment when recovered from her left side surgery 5. Bilateral lateral epicondylitis Improved but aggravated by certain activities She manages this with an elbow brace She was referred to OT hand therapy twice at her last appointments on 08/17/22 & 02/01/23 to work on exercises for stretching and prevention and how to perform her work duties without causing her pain This was not discussed today Scribed for Amber Armas MD by Miguel Ley, medical assistant secretary, on 03/21/23 at 1:15 PM, EST. Coding Level of Care Code Global (61928) Diagnoses Carpal tunnel syndrome of right wrist G56.01 Cubital tunnel syndrome on right G56.21 Left lateral epicondylitis M77.12 Right lateral epicondylitis M77.11 Carpal tunnel syndrome of left wrist G56.02
[2023-03-21 13:05] VITALS: BMI 21.5
== END 2023-03-21 14:02 | disposition home or self-care (01) ==
PROVIDERS: PCP Internal Medicine; Visit Provider Orthopaedic Surgery
DX: G56.01 Carpal tunnel syndrome, right upper limb (principal); G56.21 Lesion of ulnar nerve, right upper limb; M77.12 Lateral epicondylitis, left elbow; M77.11 Lateral epicondylitis, right elbow; G56.02 Carpal tunnel syndrome, left upper limb
CPT/HCPCS: 99024

== ENCOUNTER → 2023-03-21 12:52 | Outpatient (BNVA) | payer OTHER, SELFPAY | PROVIDERS: PCP Internal Medicine; Visit Provider Orthopaedic Surgery ==

== ENCOUNTER 2023-04-28 11:30 | Outpatient (REF) | payer OTHER, SELFPAY ==
--- NOTE | ~2023-04-28 | US_ITS ---
EXAMINATION: US THYROID CLINICAL INFORMATION: Nontoxic multinodular goiter. COMPARISON: Ultrasound soft tissue head/neck thyroid dated 11/30/2021. TECHNIQUE: Linear transducer rutledge-scale and color Doppler examination with attention to the region of the thyroid. FINDINGS: SIZE: Measurements of the thyroid lobes and nodules are given in sagittal, anteroposterior and transverse dimensions respectively. Right Thyroid Lobe: 4.8 x 1.2 x 1.3 cm, volume 4.1 mL. Previously 5.4 x 1.4 x 1.4 cm, volume 5.5 mL. Parenchyma: The gland echotexture is homogeneous. Thyroid vascularity is increased. Left Thyroid Lobe: 4.5 x 1.5 x 1.6 cm, volume 5.7 mL. Previously 5.1 x 1.6 x 1.8 cm, volume 7.7 mL. Parenchyma: The gland echotexture is homogeneous. Thyroid vascularity is increased. Isthmus: 0.25 cm in maximum AP dimension. Previously 0.20 cm. Estimated total number of nodules greater than or equal to 1 cm: 1. Glycerine Plant Operator nodules are described as follows: 1. Location: Right inferior. Size: 0.83 x 0.63 x 0.63 cm, volume 0.17 mL. Previously: 1.0 x 0.60 x 0.80 cm, volume 0.25 mL. Nodule characteristics: Composition: Solid (2). Echogenicity: Hypoechoic (2). Shape: Not taller than wide (0). Margins: Smooth (0). Echogenic Foci: None (0). ACR TI-RADS total points: 4 Previous: 4 ACR TI-RADS category: 4 Previous: 4 Significant change in size (>/= 20% in 2 dimensions and minimal increase of 2 mm or 50% or greater increase in volume): No Change in features: 4 Change in ACR TI-RADS risk category: 4 2. Location: Left mid. Size: 0.74 x 0.52 x 0.75 cm, volume 0.15 mL. Previously: 0.75 x 0.54 x 0.76 cm, volume 0.16 mL. Nodule characteristics: Composition: Solid (2). Echogenicity: Isoechoic (1). Shape: Not taller than wide (0). Margins: Smooth (0). Echogenic Foci: Macrocalcifications (1). ACR TI-RADS total points: 4 Previous: 3 ACR TI-RADS category: 4 Previous: 3 Significant change in size (>/= 20% in 2 dimensions and minimal increase of 2 mm or 50% or greater increase in volume): No Change in features: Yes Change in ACR TI-RADS risk category: Yes 3. Location: Left mid. Size: 1.2 x 0.73 x 1.0 cm, volume 0.47 mL. Previously: 1.7 x 0.80 x 1.1 cm, volume 0.75 mL. Nodule characteristics: Composition: Solid (2). Echogenicity: Hypoechoic (2). Shape: Not taller than wide (0). Margins: Smooth (0). Echogenic Foci: None (0). ACR TI-RADS total points: 4 Previous: 6 ACR TI-RADS category: 4 Previous: 4 Significant change in size (>/= 20% in 2 dimensions and minimal increase of 2 mm or 50% or greater increase in volume): No Change in features: No Change in ACR TI-RADS risk category: No NODES: No lymphadenopathy is seen in the tissue surrounding the thyroid gland. US/US thyroid IMPRESSION: Left mid 1.2 cm TR4 thyroid nodule meets criteria for biopsy. Fine-needle aspiration recommended. ACR TI-RADS RECOMMENDATION REFERENCE: Ultrasound-guided fine-needle aspiration, follow up ultrasound, no further followup. * TR1 (0 point) and TR2 (2 points): No FNA or followup * TR3 (3 points): FNA if more than or equal to 2.5 cm in maximum dimension, follow up ultrasound in 1, 3 and 5 years if 1.5 to 2.4 cm in maximum dimension. * TR4 (4-6 points): FNA if more than or equal to 1.5 cm in maximum dimension, follow up ultrasound in 1, 2, 3 and 5 years if 1 to 1.4 cm in maximum dimension. * TR5 (more than or equal to 7 points): FNA if more than or equal to 1 cm in maximum dimension, follow up ultrasound every year for 5 years if 0.5 to 0.9 cm in maximum dimension. * TR3, TR4 or TR5 nodules that are below the size threshold for follow up receive no followup.
== END 2023-04-28 11:31 | disposition home or self-care (01) ==
LOC: HO.HMGCX 11:30
PROVIDERS: PCP Internal Medicine; Visit Provider Internal Medicine Endocrinology, Diabetes & Metabolism
DX: E04.2 Nontoxic multinodular goiter (principal)
CPT/HCPCS: 76536

== ENCOUNTER 2023-05-26 14:00 | Outpatient (RCR) | payer OTHER, SELFPAY ==
--- NOTE | 2023-04-28 13:32 | MHC.OT.EP ---
[address] [phone] Occupational Therapy Plan of Care Patient Name: Abigail Braswell Date of Evaluation: 04/28/23 Diagnosis: Carpal Tunnel syndrome, Left Pain Location: 4-10 left carpal wrist and ulnar wrist and forearm. Achy. 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 Pt states she is available for OT 1x a week at most. 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 Thank you once again for your referral.
--- NOTE | 2023-05-26 15:24 | MHC.OT.DC ---
[address] [phone] F: [phone] Occupational Therapy Discharge Note Patient Name: Abigail Braswell Provider: Ally Swain Diagnosis: Carpal Tunnel syndrome, Left Date of Surgery: Date of Evaluation: 04/28/23 Date of Discharge: Treatments to Date: 3 Cancellations to Date: No Shows to Date: Discharge Status: Discharge Summary: Pt reports improvement in left hand sensation Carpal wrist pain improving. Occasional low pain avoiding heavy use. 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 She reports managing with daily activities with some modifications\ Pt seen 1 x a wk per pt preference with a long lapse after her initial eval due to her schedule Electronically Signed By: Latia Barron OT CHT CLT Reviewed/agree with student documentation: Therapist: Please Sign and return to therapist, thank you for your referral.
--- NOTE | 2023-05-26 15:25 | MHC.OT.DC ---
[address] [phone] F: [phone] Occupational Therapy Discharge Note Patient Name: Abigail Braswell Provider: Ally Swain Diagnosis: Carpal Tunnel syndrome, Left Date of Surgery: Date of Evaluation: 04/28/23 Date of Discharge: Treatments to Date: 3 Cancellations to Date: No Shows to Date: Discharge Status: Achieved Goals Improved Function Independent with HEP Discharge Summary: Pt reports improvement in left hand sensation Carpal wrist pain improving. Occasional low pain avoiding heavy use. 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 She reports managing with daily activities with some modifications\ Pt seen 1 x a wk per pt preference with a long lapse after her initial eval due to her schedule Electronically Signed By: Latia Barron OT CHT CLT Reviewed/agree with student documentation: Therapist: Please Sign and return to therapist, thank you for your referral.
== END 2023-05-26 15:25 | disposition home or self-care (01) ==
LOC: HO.OT 14:00
PROVIDERS: PCP Internal Medicine; Visit Provider Physician Assistant
DX: Z48.811 Encounter for surgical aftercare following surgery on the nervous system (principal)
CPT/HCPCS: 97035; 97110; 97140; 97165

== ENCOUNTER 2023-05-30 12:19 | Outpatient (REF) | payer OTHER, SELFPAY ==
--- NOTE | ~2023-05-30 | US_ITS ---
Ultrasound-guided thyroid nodule fine needle aspiration Indication: Left lobe thyroid nodule Procedure: Informed consent was obtained from the patient prior to the procedure. During this process, the procedure and potential alternatives were explained, along with the intended outcome and benefits. The risks of the procedure, as well as the risks of not doing the procedure, were discussed. The patient was given the opportunity to ask questions regarding the procedure and appeared competent to make medical decisions. A signed consent form which documents this discussion was placed in the medical record. A timeout was performed in the room. The patient was placed in a supine position with the neck extended. The left side of the neck and chest was prepped and draped in routine sterile fashion. 1% lidocaine was used as anesthetic. Under real-time ultrasound guidance, a 25-gauge needle was placed into the nodule and aspiration was performed. A total of 3 aspirations were performed. The specimens were placed in CytoLyt and and the Affirma bottle. Postprocedure images showed no hematoma. A Band-Aid was applied to the access site. The patient tolerated the procedure well with no immediate complications. Permanent ultrasound images were archived to the procedure. US/US guided fine needle asp Impression: Left thyroid nodule fine-needle aspiration This procedure was performed by Roger Gold PA-C, and directly supervised by Dr. Calle
[2023-05-30] MEDS: Lidocaine HCl 1 % 20 ML VIAL 5 ML SUBCUT (13:36)
== END 2023-05-30 12:20 | disposition home or self-care (01) ==
LOC: HO.US 12:19
PROVIDERS: PCP Internal Medicine; Visit Provider Internal Medicine Endocrinology, Diabetes & Metabolism
DX: E04.2 Nontoxic multinodular goiter (principal)
CPT/HCPCS: 10005; 88173; 88305

== ENCOUNTER → 2023-05-30 12:21 | Outpatient (BNV) | payer OTHER, SELFPAY | PROVIDERS: PCP Internal Medicine; Visit Provider Radiology Vascular & Interventional Radiology | DX: E04.2 Nontoxic multinodular goiter (principal) | CPT/HCPCS: 10005 ==

== ENCOUNTER 2023-06-28 09:33 | Outpatient (AMB) | payer OTHER, SELFPAY ==
[2023-06-28 09:36] VITALS: BP 108/62; PULSE 73; BMI 23.9
--- NOTE | 2023-06-28 09:36 | MHC.OFFVIS ---
Intake Vital Signs 06/28/23 09:36 Height 5 ft 10 in Weight 166 lb 10.711 oz BMI 23.9 BP 108/62 Blood Pressure Location Lt brachial Position Sitting Pulse 73 Pulse Source Pulse Oximeter Intake Visit Reasons: FNA results-confirmed Intake Note: Patient present today for FNA results. 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 [employer] Required: No Accompanied by: Self / Same As Patient Allergies aspirin Allergy (Unknown, Verified 06/28/23 09:44) shortness of breath /wheezing Medication List - Last Reconciled 06/28/23 by Faheem Lira MD albuterol sulfate 90 mcg/actuation 1 puff inhalation QID PRN budesonide 180 mcg/actuation (Pulmicort Flexhaler) 1 inh inhalation BID clonazepam 1 mg PO DAILY PRN duloxetine 30 mg PO DAILY 90 days estradiol 0.01%(0.1mg/gram) 1 g vaginal 2XW fluticasone propion-salmeterol 113-14 mcg/actuation 1 inh inhalation Q12H gabapentin 300 mg PO BEDTIME 30 days hydrocodone-acetaminophen 5-325 mg 1 tab PO Q4-6H PRN ibuprofen 800 mg PO ONCE multivitamin 1 tab PO DAILY HPI HPI Comments History of Present Illness Details 57 YO F with PMHx Multinodular thyroid who is seen in consultation for multinodular thyroid at the request of PCP. The patient last saw Dr. Spencer on 06/02/2022 Was initially diagnosed with multinodular thyroid in 2021 with thyroid US revealing bilateral thyroid nodules. Currently denies any dysphagia or hoarseness of voice. Denies any tenderness in the neck. Denies any palpitations, tremors, weight loss, frequent bowel movements. Denies hair loss, dry skin, heat or cold intolerance, weight gain, confusion. Denies any history of head or neck irradiation. Does mention a Family history of thyroid cancer (Father). Thyroid US: 11/30/2021 Right Thyroid Lobe: 5.4 x 1.4 x 1.4 cm, volume 5.5 mL. Parenchyma: The gland echotexture is homogeneous. Thyroid vascularity is increased. Left Thyroid Lobe: 5.1 x 1.6 x 1.8 cm, volume 7.7 mL. Parenchyma: The gland echotexture is homogeneous. Thyroid vascularity is increased. Isthmus: 0.2 cm in maximum AP dimension. Estimated total number of nodules greater than or equal to 1 cm: 2. Consumer Studies Professor nodules are described as follows: 1. Location: Left midpole. ?? ? Size: 1.7 x 0.8 x 1.1 cm, volume 0.75 mL. ?? ? Nodule characteristics: ?? ? Composition: Solid/almost completely solid (2). ?? ? Echogenicity: Hypoechoic (2). ?? ? Shape: Not taller than wide (0). ?? ? Margins: Lobulated (2). ?? ? Echogenic Foci: None (0). ?? ? ACR TI-RADS total points: 6. ?? ? ACR TI-RADS category: 4. 2. Location: Left midpole. ?? ? Size: 0.7 x 0.5 x 0.8 cm, volume 0.16 mL. ?? ? Nodule characteristics: ?? ? Composition: Solid (2). ?? ? Echogenicity: Isoechoic (1). ?? ? Shape: Not taller than wide (0). ?? ? Margins: Smooth (0). ?? ? Echogenic Foci: None (0). ?? ? ACR TI-RADS total points: 3. ?? ? ACR TI-RADS category: 3. 3. Location: Left lower pole medial. ?? ? Size: 0.5 x 0.3 x 0.5 cm, volume 0.04 mL. ?? ? Nodule characteristics: ?? ? Composition: Spongiform (0). ?? ? Echogenicity: 0 ?? ? Shape: 0 ?? ? Margins: 0 ?? ? Echogenic Foci: 0 ?? ? ACR TI-RADS total points: 0. ?? ? ACR TI-RADS category: 1. 4. Location: Right lower pole. ?? ? Size: 1.0 x 0.6 x 0.8 cm, volume 0.25 mL. ?? ? Nodule characteristics: ?? ? Composition: Solid/almost completely solid (2). ?? ? Echogenicity: Hypoechoic (2). ?? ? Shape: Not taller than wide (0). ?? ? Margins: Ill-defined (0). ?? ? Echogenic Foci: None (0). ?? ? ACR TI-RADS total points: 4. ?? ? ACR TI-RADS category: 4. NODES: No lymphadenopathy is seen in the tissue surrounding the thyroid gland. Labs: No recent pertinent labs. Status post FNA of left midpole nodule with inadequate cytology [facility] Medical History (Updated 02/05/23 @ 23:10 by Anna Bryant MD) Multinodular thyroid Thyroid nodule greater than or equal to 1 cm in diameter incidentally noted on imaging study Mild intermittent asthma Anxiety and depression Tendinitis of left shoulder Tennis elbow syndrome Surgical History (Updated 06/28/23 @ 09:45 by Leigh Damon) History of carpal tunnel surgery Hx of colonoscopy Family History Mother Mental health disorder Social History Housing: House Patient Tobacco Use Status: Current everyday Tobacco user Cigarettes Per Day: 5 e-Cigarette/Vaping Use: Never Used service: No Current occupational status: employed 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 There are no palpable nodules Assessment & Plan Assessment & Plan (1) Multinodular thyroid: Code(s): E04.2 - Nontoxic multinodular goiter Plan: This is a 57-year-old female with a history of multinodular goiter status post FNA of left midpole nodule with adequate cytology. Plan is to check TSH and free T4. We will discuss different options with patient including reaspiration of left midpole nodule versus observation versus lobectomy. She is opting for possible reaspiration. I will send her for a 2nd opinion to Dr. Viera at [facility] who can assess the nodule and determine whether repeat aspirations necessary Orders: Orders Free T4 (Free Thyroxine) Today E04.2 - Nontoxic multinodular goiter Thyroid Stimulating Hormone Today E04.2 - Nontoxic multinodular goiter Referrals Endocrinology Referral E04.1 - Nontoxic single thyroid nodule, E04.2 - Nontoxic multinodular goiter Coding Level of Care Code Est Pt Level 3 (42696) Diagnoses Multinodular thyroid E04.2
== END 2023-06-28 10:17 | disposition home or self-care (01) ==
PROVIDERS: PCP Internal Medicine; Visit Provider Internal Medicine Endocrinology, Diabetes & Metabolism
DX: E04.2 Nontoxic multinodular goiter (principal)
CPT/HCPCS: 99213

== ENCOUNTER 2023-06-28 09:33 | Outpatient (REF) | payer OTHER, SELFPAY ==
[2023-06-28 11:53] LABS: Free T4 (Free Thyroxine) 0.87 ng/dL (0.71-1.85); Thyroid Stimulating Hormone 0.95 uIU/mL (0.32-4.0)
== END 2023-06-28 09:34 | disposition home or self-care (01) ==
LOC: HO.LAB 09:33
PROVIDERS: PCP Internal Medicine; Visit Provider Internal Medicine Endocrinology, Diabetes & Metabolism
DX: E04.2 Nontoxic multinodular goiter (principal); E04.1 Nontoxic single thyroid nodule
CPT/HCPCS: 36415; 84439; 84443; 99212

== ENCOUNTER 2023-09-08 11:57 | Outpatient (AMB) | payer OTHER, SELFPAY ==
--- NOTE | 2023-09-08 12:31 | MHC.PC.OV ---
Vital Signs 09/08/23 12:32 Height 5 ft 10 in Weight 161 lb BMI 23.1 BP 102/62 Blood Pressure Location Lt brachial Position Sitting Pulse 75 Pulse Source Pulse Oximeter Pulse Oximetry (%) 98 Oxygen Delivery Method Room Air Intake Visit Reasons: 6M F/U rescheduled from 08/04/23 Intake Note: pt is here for 6 month follow up with labs Carpenter Apprentice Required: No Accompanied by: Self / Same As Patient Allergies aspirin Allergy (Unknown, Verified 09/08/23 12:50) shortness of breath /wheezing Medication List - Last Reconciled 09/08/23 by Anna Bryant MD albuterol sulfate 90 mcg/actuation 1 puff inhalation QID PRN clonazepam 1 mg PO DAILY PRN duloxetine 30 mg PO DAILY 90 days estradiol 0.01%(0.1mg/gram) 1 g vaginal 2XW fluticasone propion-salmeterol 113-14 mcg/actuation 1 inh inhalation Q12H gabapentin 300 mg PO BEDTIME 30 days ibuprofen 800 mg PO ONCE multivitamin 1 tab PO DAILY Tobacco use date assessed: 09/08/23 Dental Screening Dental Screen Date: 09/08/23 Did you have a dental visit in the last 12 months?: Yes Did you have a dental problem in the last 6 months where you did not have access to dental care?: No Was dental information given to patient?: Patient has dentist HPI 6M F/U rescheduled from 08/04/23 HPI Details 57-year-old lady with mild intermittent asthma, and anxiety depression, here today for follow-up. She has been feeling well, had a recent biopsy of a thyroid nodule 3 days ago with results still pending. Recent thyroid levels are within normal limits, currently followed by Dr. Lira. Anxiety disorder stable and well controlled on duloxetine and clonazepam Has not had any asthma attacks, rarely needing to use her albuterol inhaler. She had recent fasting labs done which showed normal glucose, lipid panel and electrolytes and renal function, as well as vitamin-D level. She stays active, exercise regularly and just came back from a so far trip in [facility]. 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 1. Little interest or pleasure in doing things: not at all 2. Feeling down, depressed, or hopeless: not at all 3. Trouble falling or staying asleep, or sleeping too much: several days 4. Feeling tired or having little energy: several days 5. Poor appetite or overeating: several days 6. Feeling bad about yourself - or that you are a failure or have let yourself or your family down: not at all 7. Trouble concentrating on things, such as reading the newspaper or watching television: several days 8. Moving or speaking so slowly that other people could have noticed. Or the opposite - being so fidgety or restless that you have been moving around a lot more than usual: not at all 9. Thoughts that you would be better off or of hurting yourself in some way: not at all Total score: 4 Depression Screening Interpretation: Negative Depression Screening Done: Yes 96683 - PHQ-9 Billing: Yes Source: Developed by Drs. Faheem Harrell, Sumi Hernandez, Cameron Butler and colleagues, with an educational nahid from [employer]. Thrive Questionnaire Date Thrive assessed: 09/08/23 I am a: Patient What is your living situation today?: I have a steady place to live Within the past 12 months, did the food you bought not last and you didn't have the money to get more?: Never true Within the past 12 months, did you worry whether your food would run out before you got money to buy more?: Never true Do you have trouble paying for medicines?: No Do you have trouble getting transportation to medical appointments?: No Do you have trouble paying your heating and electricity bill?: No Do you have trouble taking care of your child, family member or friend?: No Do you have trouble with day-to-day activities such as bathing, preparing meals, shopping, managing finances, etc.?: No Are you currently unemployed and looking for a job?: No Are you interested in more education?: No Please select the resources that you would like help with: None Currently or been in a relationship where the following occur: no concerns reported THRIVE Score: 0 AUDIT C Alcohol Use Questionnaire (AUDIT-C) 1. How often do you have a drink containing alcohol?: Never 3. How often do you have six or more drinks on one occasion?: Never Total Score: 0 Score Reviewed/Action Taken: Yes THOMAS-7 AMB Questionnaire THOMAS-7 Date THOMAS - 7 assessed: 09/08/23 Feeling nervous, anxious, or on edge: 2 = More than half the days Not being able to stop or control worryin = Several days Worrying too much about different things: 0 = Not at all Trouble relaxin = Nearly every day Being so restless that it is hard to sit still: 3 = Nearly every day Becoming easily annoyed or irritable: 1 = Several days Feeling afraid as if something awful might happen: 0 = Not at all Total THOMAS-7 score (0-4 normal; 5-9 mild; 10-14 moderate; 15-21 severe): 10 Source: Developed by Drs. Faheem Harrell, Sumi Hernandez, Cameron Butler and colleagues, with an educational nahid from [employer]. THOMAS-7 Assessment Billing THOMAS-7 Assessment Tool: THOMAS-7 Assessment 83696 ACT Questionnaire In the past 4 weeks, how much of the time did your asthma keep you from getting as much done at work, school or at home?: None of the time During the past 4 weeks, how often have you had shortness of breath?: Not at all During the past 4 weeks, how often did your asthma symptoms wake you up at night or earlier than usual in the morning?: Not at all During the past 4 weeks, how often have you had to use your rescue inhaler or nebulizer medication?: Not at all How would you rate your asthma control during the past 4 weeks?: Completely controlled Score: 25 Review of Systems Const Denies fever(s) and Denies headache(s) Eyes Denies change in vision ENT Denies dizziness, Denies headache(s) and Denies nasal congestion Card Denies chest pain, Denies lightheadedness, Denies palpitations and Denies dyspnea Resp Denies chest congestion, Denies cough, Denies dyspnea and Denies wheezing GI Denies abdominal pain, Denies change in bowel habits and Denies heartburn Denies urinary frequency, Denies dysuria and Denies urinary urgency Musc Reports no additional complaints and Reports stiffness (Neck stiffness) Skin/Breast Denies dry skin, Denies lesions and Denies rash Neuro Denies dizziness and Denies headache(s) Psych Reports as per HPI Endo Denies polydipsia, Denies polyuria and Denies palpitations Arnoldo/Lymph Denies easy bruising Aller/Immun Denies seasonal rhinorrhea and Denies wheezing Physical exam (Primary Care) Vital Signs: Last Vital Signs Pulse 75 09/08/23 12:32 BP 102/62 09/08/23 12:32 Pulse Ox 98 09/08/23 12:32 Oxygen Delivery Method Room Air 09/08/23 12:32 BMI result Body Mass Index 23.1 Tobacco/Smoking Status: Tobacco use Status Tobacco use date assessed 09/08/23 09/08/23 12:34 Patient Tobacco Use Status Current everyday Tobacco 09/08/23 12:34 e-Cigarette/Vaping Use Never Used 09/08/23 12:34 PHQ-9: PHQ-9 Score PHQ-9: Total score 9 09/08/23 12:46 Depression Screening Interpretation: Negative Thrive Assessment: Date of Thrive Assessment Date Thrive assessed 09/08/23 09/08/23 12:34 Currently or been in a relationship where the following occur: no concerns reported Const General: comfortable, no acute distress and alert Nutritional Appearance: average body habitus Orientation/consciousness: patient oriented x3 Limitations: no limitations HENMT Head: Yes normocephalic Ears: hearing grossly normal bilaterally and external ears normal Face and sinus: Yes face symmetric Mouth: moist mucous membranes Throat: Yes posterior oropharynx normal Eyes General: appearance normal, both eyes and all related structures Neck Neck: Yes full ROM, Yes no lymphadenopathy and Yes supple Thyroid: Thyroid normal Resp Effort & Inspection: normal respiratory effort and able to speak in complete sentences Auscultation: clear to auscultation bilaterally Cardio Palpation: normal PMI Rate: regular rate Rhythm: regular rhythm Heart sounds: S1 normal heart sound present and S2 normal heart sound present GI Inspection: Yes normal to inspection Palpation (GI): Soft to palpation, nontender, no guarding and no masses Auscultation: normal bowel sounds General: Yes no CVA tenderness and Yes deferred Back/Spine/Pelvis Back: no CVA tenderness and No back tenderness Skin General skin exam: no rashes or lesions noted Neuro General: patient oriented x3, gait normal, tone normal, moves all extremities, no focal motor deficits and CN's II-XI intact bilaterally Gait exam (Neuro): Normal gait present Motor exam (neuro): 5/5 motor strength present throughout Extrem General: Yes full ROM, Yes no joint enlargement, Yes no clubbing, cyanosis or edema, Yes no pedal edema, Yes no calf tenderness and Yes normal gait Psych Appearance: grossly normal and well kempt Mental Status: mental status grossly normal Speech and movement: Normal speech and movement present Affect: normal affect Attitude: cooperative Thought process: Normal thought process present Thought content: Normal thought content present Assessment and Plan Assessment & Plan (1) Mild intermittent asthma: Code(s): J45.20 - Mild intermittent asthma, uncomplicated Plan: Currently on fluticasone-salmeterol inhaler and rescue albuterol inhaler which she rarely needs to use. (2) Anxiety and depression: Code(s): F41.9 - Anxiety disorder, unspecified; F32.A - Depression, unspecified Plan: Stable and controlled on duloxetine continue with 30 mg once a day and takes clonazepam 1 mg once a day as needed for acute anxiety attacks Coding Level of Care Code Est Pt Level 4 (17824) Diagnoses Mild intermittent asthma J45.20 Anxiety and depression F41.9; F32.A Additional Codes THOMAS-7 Assessment Billing - THOMAS-7 Assessment Tool: THOMAS-7 Assessment 99997 ([id number])
[2023-09-08 12:32] VITALS: BP 102/62; PULSE 75; O2SAT 98; BMI 23.1
== END 2023-09-08 13:24 | disposition home or self-care (01) ==
PROVIDERS: PCP Internal Medicine; Visit Provider Internal Medicine
DX: J45.20 Mild intermittent asthma, uncomplicated (principal); F41.9 Anxiety disorder, unspecified; F32.A Depression, unspecified
CPT/HCPCS: 99214

== ENCOUNTER 2025-02-20 15:52 | Outpatient (AMB) | payer OTHER, SELFPAY ==
--- NOTE | 2025-02-20 16:32 | MHC.PC.OV ---
Vital Signs 02/20/25 16:35 Height 5 ft 10.5 in Weight 161 lb BMI 22.8 BP 100/62 Blood Pressure Location Rt brachial Position Sitting Respiration 16 Pulse 66 Pulse Source Pulse Oximeter Temp 98.1 F Temp Source Oral Pulse Oximetry (%) 96 Oxygen Delivery Method Room Air Intake Visit Reasons: PE jose x2 Intake Note: Pt is here today for her PE Allergies aspirin Allergy (Unknown, Verified 02/20/25 16:43) shortness of breath /wheezing Medication List - Last Reconciled 03/01/25 by Anna Bryant MD clonazepam 1 mg PO DAILY PRN duloxetine 30 mg PO DAILY 90 days estradiol (Estring) 7.5 mcg vaginal [id number] fluticasone propion-salmeterol 113-14 mcg/actuation 1 inh inhalation Q12H gabapentin 300 mg PO BEDTIME 30 days ibuprofen 800 mg PO ONCE multivitamin 1 tab PO DAILY Ventolin HFA 90 mcg/actuation (albuterol sulfate) 2 puffs inhalation Q6H PRN NS Tobacco use date assessed: 02/20/25 Dental Screening Dental Screen Date: 02/20/25 Did you have a dental visit in the last 12 months?: Yes Did you have a dental problem in the last 6 months where you did not have access to dental care?: No Was dental information given to patient?: Patient has dentist HPI PE jose x2 HPI Details 59year-old lady with history mild intermittent asthma, anxiety/ depression,multinodular goiter status post FNA of left midpole nodule with adequate cytology followed by Dr. Lira,. here today for her physical exam.. Anxiety disorder stable and well controlled on duloxetine and clonazepam Has not had any asthma attacks, rarely needing to use her albuterol inhaler. Takes Gabapentinat bedtime for treatment of cervical radiculopathy . 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 1. Little interest or pleasure in doing things: not at all 2. Feeling down, depressed, or hopeless: not at all 3. Trouble falling or staying asleep, or sleeping too much: not at all 4. Feeling tired or having little energy: not at all 5. Poor appetite or overeating: not at all 6. Feeling bad about yourself - or that you are a failure or have let yourself or your family down: not at all 7. Trouble concentrating on things, such as reading the newspaper or watching television: not at all 8. Moving or speaking so slowly that other people could have noticed. Or the opposite - being so fidgety or restless that you have been moving around a lot more than usual: not at all 9. Thoughts that you would be better off or of hurting yourself in some way: not at all Total score: 0 Depression Screening Interpretation: Negative Depression Screening Done: Yes 41180 - PHQ-9 Billing: Yes Source: Developed by Drs. Faheem Harrell, Sumi Hernandez, Cameron Butler and colleagues, with an educational nahid from [employer]. Thrive Questionnaire Date Thrive assessed: 02/20/25 I am a: Patient What is your living situation today?: I have a steady place to live Within the past 12 months, did the food you bought not last and you didn't have the money to get more?: I choose not to answer this question Within the past 12 months, did you worry whether your food would run out before you got money to buy more?: I choose not to answer this question Do you have trouble paying for medicines?: I choose not to answer this question Do you have trouble getting transportation to medical appointments?: No Do you have trouble paying your heating and electricity bill?: No Do you have trouble taking care of your child, family member or friend?: No Do you have trouble with day-to-day activities such as bathing, preparing meals, shopping, managing finances, etc.?: No Are you currently unemployed and looking for a job?: No Are you interested in more education?: No Please select the resources that you would like help with: None Currently or been in a relationship where the following occur: I choose not to answer THRIVE Score: 0 AUDIT C Alcohol Use Questionnaire (AUDIT-C) 1. How often do you have a drink containing alcohol?: 4 or more times a week 2. How many drinks containing alcohol do you have on a typical day when you are drinking?: 1 or 2 3. How often do you have six or more drinks on one occasion?: Less than monthly Total Score: 5 Score Reviewed/Action Taken: Yes THOMAS-7 AMB Questionnaire THOMAS-7 Date THOMAS - 7 assessed: 02/20/25 Feeling nervous, anxious, or on edge: 0 = Not at all Not being able to stop or control worryin = Not at all Worrying too much about different things: 0 = Not at all Trouble relaxin = Nearly every day Being so restless that it is hard to sit still: 2 = More than half the days Becoming easily annoyed or irritable: 2 = More than half the days Feeling afraid as if something awful might happen: 0 = Not at all Total THOMAS-7 score (0-4 normal; 5-9 mild; 10-14 moderate; 15-21 severe): 7 Source: Developed by Drs. Faheem Harrell, Sumi Hernandez, Cameron Butler and colleagues, with an educational nahid from [employer]. 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 Randall for routine skin cancer screening Denies dry skin, Denies lesions and Denies rash Neuro Denies dizziness and Denies headache(s) Psych Reports as per HPI Endo Denies polydipsia, Denies polyuria and Denies palpitations Arnoldo/Lymph Denies easy bruising Aller/Immun Denies seasonal rhinorrhea and Denies wheezing Physical exam (Primary Care) Vital Signs: Last Vital Signs Temp 98.1 F 02/20/25 16:35 Pulse 66 02/20/25 16:35 Resp 16 02/20/25 16:35 BP 100/62 02/20/25 16:35 Pulse Ox 96 02/20/25 16:35 Oxygen Delivery Method Room Air 02/20/25 16:35 BMI result Body Mass Index 22.8 Tobacco/Smoking Status: Tobacco use Status Tobacco use date assessed 02/20/25 02/20/25 16:44 Patient Tobacco Use Status Current everyday Tobacco 02/20/25 16:32 e-Cigarette/Vaping Use Never Used 02/20/25 16:32 PHQ-9: PHQ-9 Score PHQ-9: Total score 0 03/01/25 01:14 Depression Screening Interpretation: Negative Thrive Assessment: Date of Thrive Assessment Date Thrive assessed 02/20/25 02/20/25 16:44 Currently or been in a relationship where the following occur: I choose not to answer Const General: comfortable, no acute distress and alert Nutritional Appearance: average body habitus Orientation/consciousness: patient oriented x3 Limitations: no limitations [facility] Head: Yes normocephalic Ears: hearing grossly normal bilaterally and external ears normal Face and sinus: Yes face symmetric Mouth: moist mucous membranes Throat: Yes posterior oropharynx normal Eyes General: appearance normal, both eyes and all related structures Neck Neck: Yes full ROM, Yes no lymphadenopathy and Yes supple Thyroid: Thyroid normal Chest Chest palpation & inspection: normal inspection of the chest Breast/axilla palpation: normal palpation of the breasts Resp Effort & Inspection: normal respiratory effort and able to speak in complete sentences Auscultation: clear to auscultation bilaterally Cardio Palpation: normal PMI Rate: regular rate Rhythm: regular rhythm Heart sounds: S1 normal heart sound present and S2 normal heart sound present GI Inspection: Yes normal to inspection Palpation (GI): Soft to palpation, nontender, no guarding and no masses Auscultation: normal bowel sounds General: Yes no CVA tenderness and Yes deferred Back/Spine/Pelvis Back: no CVA tenderness and No back tenderness Skin General skin exam: no rashes or lesions noted Neuro General: patient oriented x3, gait normal, tone normal, moves all extremities, no focal motor deficits and CN's II-XI intact bilaterally Gait exam (Neuro): Normal gait present Motor exam (neuro): 5/5 motor strength present throughout Extrem General: Yes full ROM, Yes no joint enlargement, Yes no clubbing, cyanosis or edema, Yes no pedal edema, Yes no calf tenderness and Yes normal gait Psych Appearance: grossly normal and well kempt Mental Status: mental status grossly normal Speech and movement: Normal speech and movement present Affect: normal affect Coding Level of Care Code Est Pt Prev Care 40-64y(73208) Diagnoses Annual visit for general adult medical examination with abnormal findings Z00.01 Anxiety and depression F41.9; F32.A Cervical spondylitis with radiculitis M46.92; M54.12 Mild intermittent asthma without complication J45.20 Asthma complication type: uncomplicated Additional Codes THOMAS-7 Assessment Billing - THOMAS-7 Assessment Tool: THOMAS-7 Assessment 90089 ([id number]) PHQ-9 - 49548 - PHQ-9 Billing: Yes ([id number]) Assessment & Plan Assessment & Plan (1) Annual visit for general adult medical examination with abnormal findings: Code(s): Z00.01 - Encounter for general adult medical examination with abnormal findings Plan: Patient had recent fasting labs done at lab [facility], which showed normal electrolytes, renal function, fasting glucose, lipid levels, and thyroid screening hormone and free T4 levels.. Continue regular dental visit every 6 months and regular eye exams, at least every 2 years. Take adequate calcium in diet and vitamin-D 3 at 2000 IU per cap once a day, in addition to weight-bearing exercises to help maintain good muscle tone and weight control. Instructed to do self-breast exam, and recommended to get yearly mammogram, requested copies of latest cervical cancer screening, and mammogram from [place] . Last colonoscopy was done 10/03/[address] Castellanos, with normal findings, to be repeated in 10 years (2) Anxiety and depression: Code(s): F41.9 - Anxiety disorder, unspecified; F32.A - Depression, unspecified Category: Medical Plan: Stable on duloxetine, takes clonazepam as needed (3) Cervical spondylitis with radiculitis: Code(s): M46.92 - Unspecified inflammatory spondylopathy, cervical region; M54.12 - Radiculopathy, cervical region Category: Medical Plan: Continue gabapentin at bedtime ibuprofen taken (4) Mild intermittent asthma: Code(s): J45.20 - Mild intermittent asthma, uncomplicated Category: Medical Qualifiers: Asthma complication type: uncomplicated Qualified Code(s): J45.20 - Mild intermittent asthma, uncomplicated Plan: Currently using Ventolin inhaler as needed for episodes of bronchospasm and wheezing. Patient strongly advised to smoking, not ready to quit
[2025-02-20 16:35] VITALS: BP 100/62; PULSE 66; RESP 16; TEMP 36.7; O2SAT 96; BMI 22.8
== END 2025-02-20 17:30 | disposition home or self-care (01) ==
PROVIDERS: PCP Internal Medicine; Visit Provider Internal Medicine
DX: Z00.01 Encounter for general adult medical examination with abnormal findings (principal); F41.9 Anxiety disorder, unspecified; F32.A Depression, unspecified; M46.92 Unspecified inflammatory spondylopathy, cervical region; M54.12 Radiculopathy, cervical region; J45.20 Mild intermittent asthma, uncomplicated

== ENCOUNTER → 2025-02-20 15:52 | Outpatient (BNVA) | payer OTHER, SELFPAY | PROVIDERS: PCP Internal Medicine; Visit Provider Internal Medicine | DX: Z00.01 Encounter for general adult medical examination with abnormal findings (principal); F41.9 Anxiety disorder, unspecified; F32.A Depression, unspecified; M46.92 Unspecified inflammatory spondylopathy, cervical region; M54.12 Radiculopathy, cervical region; J45.20 Mild intermittent asthma, uncomplicated; Z79.899 Other long term (current) drug therapy; Z13.31 Encounter for screening for depression; Z13.39 Encounter for screening examination for other mental health and behavioral disorders | CPT/HCPCS: 96127; 99396 ==